=== PATIENT | female | born 1975 | race Caucasian/White ===

== ENCOUNTER 2018-03-28 15:32 | Emergency (ER) | payer BC, OTHER ==
[2018-03-28 18:18] LABS: URINE BLOOD (Dip) POC Trace-intact (NEGATIVE); URINE GLUCOSE (Dip) POC Negative (NEGATIVE); URINE KETONES (Dip) POC Negative (NEGATIVE); URINE LEUKOCYTE EST (Dip) POC Negative (NEGATIVE); URINE NITRITE (Dip) POC Negative (NEGATIVE); URINE TOTAL PROTEIN POC Negative (NEGATIVE)
== END 2018-03-28 19:43 | disposition home or self-care (01) ==
LOC: FTE 15:32
DX: K80.20 Calculus of gallbladder without cholecystitis without obstruction (principal); H81.10 Benign paroxysmal vertigo, unspecified ear; Z76.0 Encounter for issue of repeat prescription
CPT/HCPCS: 74176; 81003; 81025; 99284-25